=== PATIENT | male | born 1975 | race Caucasian/White ===

== ENCOUNTER 2016-08-29 21:49 | Emergency (ER) | payer SELFPAY ==
[~2016-08-29] VITALS: Ht 175.3 cm; Wt 90.9 kg
[2016-08-29] MEDS ORDERED: PHENY100 PO (21:54)
[2016-08-29] MEDS ORDERED: IBUPROFEN 800 MG TABLET PO ONE (22:30)
[2016-08-29] MEDS ORDERED: DEXAMETHASONE SOD PHOS 4 MG/ML 5 ML VIAL IM ONE (22:30)
[2016-08-29] MEDS ORDERED: PredniSONE 20 MG TABLET PO ONE (22:45)
[2016-08-29 23:38] VITALS: BP 135/70
== END 2016-08-29 23:41 | disposition home or self-care (01) ==
LOC: EMS 21:50
DX: S89.91XA Unspecified injury of right lower leg, initial encounter (principal); R56.9 Unspecified convulsions; F17.210 Nicotine dependence, cigarettes, uncomplicated; Z88.0 Allergy status to penicillin; Z79.899 Other long term (current) drug therapy; W57.XXXA Bitten or stung by nonvenomous insect and other nonvenomous arthropods, initial encounter; Y93.89 Activity, other specified; Y92.89 Other specified places as the place of occurrence of the external cause; Y99.8 Other external cause status
CPT/HCPCS: 73562; 96372; 99284; J1100; J7512